=== PATIENT | male | born 1940 | race Caucasian/White ===

== ENCOUNTER 2016-09-20 02:00 | Inpatient (IN) | payer OTHER ==
[~2016-09-20] VITALS: Ht 175.3 cm; Wt 98.4 kg
[~2016-09-20 02:00] MED LIST: ASPI-621 PO; FOLI0.4T2 PO; GLIP10TA20 PO; HYDR25TA6 PO; HYDROCHLORTHIAZIDE PO; LEVO750T26 PO; LISI-167 PO; METF25CR PO; OMEG1CAP6 PO; PRAV20TA2 PO; VITA400C14 PO
[2016-09-20] MEDS ORDERED: NITROGLYCERIN OINT 2%, 1GM TP ONE ×2 (02:44→03:00)
[2016-09-20] MEDS ORDERED: ASPIRIN 81 MG TABLET CHEW ONE (02:45)
[2016-09-20 02:58] LABS: HEMOGLOBIN 16.5 g/dL (13.7-18.0)
[2016-09-20] MEDS ORDERED: ASPIRIN 81 MG TABLET CHEW PO ONE (03:00)
[2016-09-20] MEDS ORDERED: SODIUM CHLORIDE FLUSH 10ML SYR IVF ONE (03:00)
[2016-09-20] MEDS ORDERED: LORazepam 2 MG/ML, 1ML ONE (03:03)
[2016-09-20] MEDS: LORazepam 2 MG/ML, 1ML IVPush PRN ×4 (03:05→03:57)
[2016-09-20] MEDS ORDERED: NITROGLYCERIN/D5W PMX 250 ML ONE (03:06)
[2016-09-20 03:10] LABS: ASPARTATE AMINO TRANSFERASE 13 U/L (15-37); BLOOD UREA NITROGEN 17 mg/dL (7-18)
[2016-09-20] MEDS: NITROGLYCERIN/D5W PMX 250 ML IV SCH ×5 (03:14→04:11)
[2016-09-20 03:16] LABS: IS PT STATUS REG ER OR PRE ER? YES
[2016-09-20] MEDS ORDERED: FUROSEMIDE 40 MG/4 ML ONE (03:22)
[2016-09-20] MEDS ORDERED: FUROSEMIDE 40 MG/4 ML IV ONE (03:30)
[2016-09-20] MEDS ORDERED: METF10002 PO (04:20)
[2016-09-20] MEDS ORDERED: LISI-170 PO (04:20)
[2016-09-20] MEDS ORDERED: CARV12.52 PO (04:20)
[2016-09-20] MEDS ORDERED: PRAV40TA2 PO (04:20)
[2016-09-20] MEDS ORDERED: NITROGLYCERIN/D5W PMX 250 ML IV PRN (04:30)
[2016-09-20] MEDS ORDERED: OXYcodone IR 5MG TABLET PO PRN (04:30)
[2016-09-20] MEDS ORDERED: DOCUSATE 100 MG CAPSULE PO PRN (04:30)
[2016-09-20] MEDS ORDERED: MORPHINE SULFATE 4 MG/ML, 1ML IVPush PRN (04:30)
[2016-09-20] MEDS ORDERED: BISACODYL 10 MG SUPP PR PRN (04:30)
[2016-09-20] MEDS ORDERED: ACETAMINOPHEN 325 MG TABLET PO PRN (04:30)
[2016-09-20] MEDS ORDERED: ONDANSETRON 2MG/ML, 2ML IVP PRN (04:30)
[2016-09-20] MEDS ORDERED: POLYETHYLENE GLYCOL 17 GM PACKET PO PRN (04:30)
[2016-09-20] MEDS ORDERED: LORazepam 2 MG/ML, 1ML IVPush PRN (04:30)
[2016-09-20] MEDS ORDERED: ENOXAPARIN 40 MG/0.4 ML ONE (04:47)
[2016-09-20] MEDS: ENOXAPARIN 40 MG/0.4 ML SQ SCH (04:49)
[2016-09-20 05:21] LABS: ABG COLLECTION SITE RIGHT RADIAL; COLLATERAL CIRCULATION TESTING NORMAL
[2016-09-20] MEDS ORDERED: INSULIN REGULAR 100 UNITS/ML, 3ML VIAL SQ-INSULIN SCH (07:00)
[2016-09-20 08:00] VITALS: BP 112/79
[2016-09-20 08:45] LABS: IS PT STATUS REG ER OR PRE ER? NO
[2016-09-20] MEDS: FAMOTIDINE 20 MG/2 ML IV SCH ×2 (09:16→21:19)
[2016-09-20] MEDS: POTASSIUM CHLORIDE 20 MEQ TAB.ER.PRT PO SCH (09:16)
[2016-09-20] MEDS: FUROSEMIDE 40 MG/4 ML IV SCH ×2 (09:16→17:12)
[2016-09-20] MEDS: SODIUM CHLORIDE FLUSH 10ML SYR IVF SCH ×2 (09:16→21:20)
[2016-09-20] MEDS: CARVEDILOL 12.5 MG TABLET PO SCH ×2 (09:19→21:19)
[2016-09-20] MEDS: LISINOPRIL 20 MG TABLET PO SCH (09:19)
[2016-09-20 10:41] VITALS: BP 112/79
[2016-09-20 15:02] LABS: IS PT STATUS REG ER OR PRE ER? NO
[2016-09-20 20:00] VITALS: BP 135/75
[2016-09-20] MEDS: PRAVASTATIN 40 MG TABLET PO SCH (21:19)
[2016-09-21 04:12] VITALS: BP 112/66
[2016-09-21] MEDS: ENOXAPARIN 40 MG/0.4 ML SQ SCH (04:18)
[2016-09-21 04:37] LABS: HEMOGLOBIN 16.3 g/dL (13.7-18.0)
[2016-09-21 04:42] LABS: BLOOD UREA NITROGEN 21 mg/dL (7-18)
[2016-09-21 08:41] VITALS: BP 151/76
[2016-09-21] MEDS: LISINOPRIL 20 MG TABLET PO SCH (09:39)
[2016-09-21] MEDS: FAMOTIDINE 20 MG/2 ML IV SCH (09:39)
[2016-09-21] MEDS: CARVEDILOL 12.5 MG TABLET PO SCH ×2 (09:39→20:31)
[2016-09-21] MEDS: POTASSIUM CHLORIDE 20 MEQ TAB.ER.PRT PO SCH (09:39)
[2016-09-21] MEDS: FUROSEMIDE 40 MG/4 ML IV SCH ×2 (09:40→18:13)
[2016-09-21] MEDS: SODIUM CHLORIDE FLUSH 10ML SYR IVF SCH ×2 (09:40→20:46)
[2016-09-21 15:38] VITALS: BP 104/73
[2016-09-21 18:33] VITALS: BP 129/78
[2016-09-21] MEDS: PRAVASTATIN 40 MG TABLET PO SCH (20:31)
[2016-09-21] MEDS: FAMOTIDINE 20 MG TABLET PO SCH (20:31)
[2016-09-22 01:58] VITALS: BP 104/70
[2016-09-22 06:32] VITALS: BP 112/75
[2016-09-22] MEDS: FUROSEMIDE 40 MG/4 ML IV SCH ×2 (07:30→15:31)
[2016-09-22] MEDS: ENOXAPARIN 40 MG/0.4 ML SQ SCH (07:40)
[2016-09-22 08:02] LABS: BLOOD UREA NITROGEN 24 mg/dL (7-18)
[2016-09-22] MEDS: POTASSIUM CHLORIDE 20 MEQ TAB.ER.PRT PO SCH (08:17)
[2016-09-22] MEDS: LISINOPRIL 20 MG TABLET PO SCH (08:17)
[2016-09-22] MEDS: CARVEDILOL 12.5 MG TABLET PO SCH ×2 (08:17→21:36)
[2016-09-22] MEDS: FAMOTIDINE 20 MG TABLET PO SCH ×2 (08:17→21:36)
[2016-09-22] MEDS: SODIUM CHLORIDE FLUSH 10ML SYR IVF SCH ×4 (08:17→21:36)
[2016-09-22] MEDS: MUPIROCIN OINT 2%, 22GM TP SCH ×2 (08:18→21:36)
[2016-09-22] MEDS ORDERED: INSULIN ASPART 100 UNITS/ML, PEN SQ-INSULIN SCH (08:30)
[2016-09-22] MEDS ORDERED: CHLORHEXIDINE MOUTHWASH 15 ML UDC MM PRN (08:30)
[2016-09-22 08:43] LABS: HEMOGLOBIN 16.5 g/dL (13.7-18.0)
[2016-09-22 08:53] LABS: ASPARTATE AMINO TRANSFERASE 11 U/L (15-37); BLOOD UREA NITROGEN 23 mg/dL (7-18)
[2016-09-22 13:26] VITALS: BP 121/81
[2016-09-22 20:00] VITALS: BP 110/72
[2016-09-22] MEDS: PRAVASTATIN 40 MG TABLET PO SCH (21:36)
[2016-09-23 04:00] VITALS: BP_SYST 106; BP_SYST 108; BP_DIAS 70; BP_DIAS 75
[2016-09-23 06:07] LABS: BLOOD UREA NITROGEN 28 mg/dL (7-18)
[2016-09-23 07:15] VITALS: BP 107/73
[2016-09-23 07:17] VITALS: BP 113/72
[2016-09-23] MEDS: FUROSEMIDE 40 MG/4 ML IV SCH (07:30)
[2016-09-23] MEDS ORDERED: EPINEPHRINE 2 MG in SODIUM CHLORIDE 0.9% 248 ML IV SCH (07:30)
[2016-09-23] MEDS ORDERED: DEXMEDETOMIDINE 200 MCG in SODIUM CHLORIDE 0.9% 48 ML IV SCH (07:30)
[2016-09-23] MEDS ORDERED: PHENYLEPHRINE 10 MG in SODIUM CHLORIDE 0.9% 249 ML IV PRN ×2 (07:30→15:40)
[2016-09-23] MEDS ORDERED: CEFUROXIME 1.5 GM in SODIUM CHLORIDE 0.9% 50 ML IVPB PRN ×2 (07:30→12:30)
[2016-09-23] MEDS ORDERED: MANNITOL PMX 20% 500 ML IVPB PRN (07:30)
[2016-09-23] MEDS ORDERED: REGULAR INSULIN 62.5 UNITS in SODIUM CHLORIDE 0.9% 249.375 ML IV PRN ×2 (07:30→15:40)
[2016-09-23] MEDS ORDERED: POTASSIUM CHLORIDE 80 MEQ, SODIUM BICARBONATE 8.4% 10 MEQ, MAGNESIUM SULFATE 0.5 GM, LI... IV PRN (07:30)
[2016-09-23] MEDS ORDERED: VANCOMYCIN 1,350 MG in SODIUM CHLORIDE 0.9% 250 ML IVPB PRN ×2 (07:30→12:30)
[2016-09-23] MEDS: ENOXAPARIN 40 MG/0.4 ML SQ SCH (08:00)
[2016-09-23] MEDS: POTASSIUM CHLORIDE 20 MEQ TAB.ER.PRT PO SCH (08:00)
[2016-09-23] MEDS: FAMOTIDINE 20 MG TABLET PO SCH (09:00)
[2016-09-23] MEDS: CARVEDILOL 12.5 MG TABLET PO SCH (09:00)
[2016-09-23] MEDS: LISINOPRIL 20 MG TABLET PO SCH (09:00)
[2016-09-23] MEDS: MUPIROCIN OINT 2%, 22GM TP SCH (09:25)
[2016-09-23] MEDS: SODIUM CHLORIDE FLUSH 10ML SYR IVF SCH ×3 (09:30→21:30)
[2016-09-23] MEDS ORDERED: ALBUMIN HUMAN 5% 500 ML IV ONE (10:30)
[2016-09-23] MEDS ORDERED: PROPOFOL 10 MG/ML, 20ML ONE (11:14)
[2016-09-23] MEDS ORDERED: EPINEPHRINE 1 MG/ML, 1ML ONE (11:14)
[2016-09-23] MEDS ORDERED: MILRINONE 1 MG/ML, 20ML ONE (11:14)
[2016-09-23] MEDS ORDERED: ROCURONIUM 10 MG/ML ONE (11:14)
[2016-09-23] MEDS ORDERED: FENTANYL PF 1000 MCG/20ML ONE (11:18)
[2016-09-23] MEDS ORDERED: MIDAZOLAM 10MG/2 ML ONE (11:18)
[2016-09-23] MEDS ORDERED: DOBUTAMINE 250 MG in SODIUM CHLORIDE 0.9% 230 ML IV PRN (15:40)
[2016-09-23] MEDS ORDERED: DEXMEDETOMIDINE 200 MCG in SODIUM CHLORIDE 0.9% 48 ML IV PRN (15:40)
[2016-09-23] MEDS ORDERED: SODIUM CHLORIDE 0.9% 1,000 ML IV PRN (15:40)
[2016-09-23] MEDS ORDERED: NITROGLYCERIN/D5W PMX 250 ML IV PRN (15:40)
[2016-09-23] MEDS ORDERED: CLEVIDIPINE 50 ML IV PRN (15:40)
[2016-09-23] MEDS ORDERED: DEXTROSE 50%, 50ML SYRINGE IVPush PRN (16:00)
[2016-09-23] MEDS ORDERED: ACETAMINOPHEN 325 MG TABLET PO PRN (16:00)
[2016-09-23] MEDS ORDERED: DEXTROSE 4 GM TAB.CHEW PO PRN (16:00)
[2016-09-23] MEDS ORDERED: ACETAMINOPHEN 650 MG SUPP PR PRN (16:00)
[2016-09-23] MEDS ORDERED: ONDANSETRON 2MG/ML, 2ML IVPush PRN (16:00)
[2016-09-23] MEDS ORDERED: EPINEPHRINE 2 MG in SODIUM CHLORIDE 0.9% 248 ML IV PRN (16:00)
[2016-09-23] MEDS ORDERED: GLUCAGON 1 MG IM PRN (16:00)
[2016-09-23] MEDS ORDERED: BISACODYL 10 MG SUPP PR PRN (16:00)
[2016-09-23] MEDS ORDERED: MEPERIDINE/PF 25MG/0.5ML IVPush PRN (16:00)
[2016-09-23] MEDS: KSCALE TO 4.5 IV SCH ×2 (16:00→22:56)
[2016-09-23] MEDS ORDERED: SODIUM BICARB 8.4%, 50ML SYRINGE IV PRN (16:00)
[2016-09-23] MEDS ORDERED: MIDAZOLAM 1 MG/ML, 5ML IVPush PRN (16:00)
[2016-09-23] MEDS ORDERED: CALCIUM CHLORIDE 13.6 MEQ in SODIUM CHLORIDE 0.9% 100 ML IV ONE (16:00)
[2016-09-23] MEDS ORDERED: PROCHLORPERAZINE 5 MG/ML, 2ML IVPush PRN (16:00)
[2016-09-23] MEDS ORDERED: AMINOCAPROIC ACID 250 MG/ML, 20ML ONE (16:10)
[2016-09-23] MEDS ORDERED: LIDOCAINE 2% 100MG/5ML SYRINGE ONE (16:10)
[2016-09-23] MEDS ORDERED: PROTAMINE SULFATE 10 MG/ML, 25ML ONE (16:10)
[2016-09-23] MEDS ORDERED: CALCIUM CHLORIDE 10%, 10ML SYR ONE (16:10)
[2016-09-23] MEDS ORDERED: ALBUMIN HUMAN 25% 50 ML ONE (16:10)
[2016-09-23] MEDS ORDERED: HEPARIN 1,000 UNITS/ML, 30ML ONE (16:10)
[2016-09-23] MEDS ORDERED: methylPREDNISolone SOD SUCC 125 MG/2 ML ONE (16:11)
[2016-09-23] MEDS ORDERED: MILRINONE 1 MG/ML, 10ML IV ONE (16:11)
[2016-09-23 16:13] LABS: ABG COLLECTION SITE ARTERIAL LINE
[2016-09-23] MEDS ORDERED: AMIODARONE 50 MG/ML, 3ML ONE (16:14)
[2016-09-23 16:16] LABS: HEMOGLOBIN 13.7 g/dL (13.7-18.0)
[2016-09-23] MEDS: MAGNESIUM SULFATE 1 GM in SODIUM CHLORIDE 0.9% 50 ML IVPB SCH (17:28)
[2016-09-23 18:26] LABS: ABG COLLECTION SITE ARTERIAL LINE
[2016-09-23] MEDS: morphine SULFATE 10 MG/ML, 1ML IVPush PRN ×4 (19:27→23:49)
[2016-09-23] MEDS: LACTATED RINGERS 500 ML IV PRN ×2 (19:50→20:52)
[2016-09-23] MEDS: DOCUSATE 100 MG CAPSULE PO SCH (21:00)
[2016-09-23] MEDS: PRAVASTATIN 40 MG TABLET PO SCH (21:00)
[2016-09-23 21:27] LABS: ABG COLLECTION SITE NOT DOCUMENTED
[2016-09-23] MEDS: OXYcodone IR 5MG TABLET PO PRN (22:43)
[2016-09-23] MEDS: MUPIROCIN OINT 2%, 22GM NAS SCH (22:43)
[2016-09-23] MEDS: CEFUROXIME 1.5 GM in SODIUM CHLORIDE 0.9% 50 ML IVPB SCH (22:48)
[2016-09-23 22:51] LABS: HEMOGLOBIN 11.4 g/dL (13.7-18.0)
[2016-09-23] MEDS: INSULIN ASPART 100 UNITS/ML, PEN SQ-INSULIN PRN (23:31)
[2016-09-23] MEDS: VANCOMYCIN 1,400 MG in SODIUM CHLORIDE 0.9% 250 ML IVPB SCH (23:49)
[2016-09-24] MEDS: INSULIN ASPART 100 UNITS/ML, PEN SQ-INSULIN PRN ×4 (00:33→04:41)
[2016-09-24] MEDS: HYDROcodone/APAP 10/325 MG TABLET PO PRN ×5 (01:28→21:15)
[2016-09-24] MEDS ORDERED: ALBUTEROL SULFATE 2.5 MG/3 ML NPPB PRN (03:30)
[2016-09-24 03:44] LABS: ABG COLLECTION SITE NOT DOCUMENTED
[2016-09-24 03:56] LABS: BLOOD UREA NITROGEN 23 mg/dL (7-18)
[2016-09-24] MEDS: KSCALE TO 4.5 IV SCH (04:00)
[2016-09-24 04:14] LABS: HEMOGLOBIN 11.3 g/dL (13.7-18.0)
[2016-09-24] MEDS: OXYcodone IR 5MG TABLET PO PRN ×2 (04:39→14:00)
[2016-09-24] MEDS: PANTOPRAZOLE 40 MG IV IVPush SCH (08:10)
[2016-09-24] MEDS: SODIUM CHLORIDE FLUSH 10ML SYR IVF SCH ×3 (08:11→21:15)
[2016-09-24] MEDS: DOCUSATE 100 MG CAPSULE PO SCH ×2 (08:12→21:15)
[2016-09-24] MEDS: MUPIROCIN OINT 2%, 22GM NAS SCH ×2 (08:12→21:15)
[2016-09-24] MEDS: ASPIRIN 81 MG TABLET EC PO SCH (08:12)
[2016-09-24] MEDS: INSULIN ASPART 100 UNITS/ML, PEN SQ-INSULIN SCH ×4 (08:12→21:22)
[2016-09-24] MEDS: CEFUROXIME 1.5 GM in SODIUM CHLORIDE 0.9% 50 ML IVPB SCH (11:09)
[2016-09-24 11:41] LABS: HEMOGLOBIN 10.1 g/dL (13.7-18.0)
[2016-09-24] MEDS: VANCOMYCIN 1,400 MG in SODIUM CHLORIDE 0.9% 250 ML IVPB SCH (11:55)
[2016-09-24 14:33] VITALS: BP 96/68
[2016-09-24] MEDS: MAGNESIUM SULFATE 1 GM in SODIUM CHLORIDE 0.9% 50 ML IVPB SCH (17:04)
[2016-09-24] MEDS: CHLORHEXIDINE MOUTHWASH 15 ML UDC MM SCH (17:04)
[2016-09-24] MEDS ORDERED: WARFARIN 5 MG TABLET PO-COUM SCH (18:00)
[2016-09-24 19:00] VITALS: BP 106/65
[2016-09-24] MEDS: PRAVASTATIN 40 MG TABLET PO SCH (21:15)
[2016-09-25] MEDS: OXYcodone IR 5MG TABLET PO PRN ×3 (01:28→22:02)
[2016-09-25 04:22] VITALS: BP 130/70
[2016-09-25] MEDS: CHLORHEXIDINE MOUTHWASH 15 ML UDC MM SCH ×2 (05:18→22:02)
[2016-09-25 05:43] LABS: BLOOD UREA NITROGEN 17 mg/dL (7-18)
[2016-09-25 05:54] LABS: HEMOGLOBIN 10.2 g/dL (13.7-18.0)
[2016-09-25 06:34] VITALS: BP 118/58
[2016-09-25] MEDS: PANTOPRAZOLE 40 MG IV IVPush SCH (08:13)
[2016-09-25] MEDS: INSULIN ASPART 100 UNITS/ML, PEN SQ-INSULIN SCH ×4 (08:13→22:09)
[2016-09-25] MEDS: SODIUM CHLORIDE FLUSH 10ML SYR IVF SCH ×4 (08:14→22:01)
[2016-09-25] MEDS: DOCUSATE 100 MG CAPSULE PO SCH ×2 (08:14→22:02)
[2016-09-25] MEDS: MUPIROCIN OINT 2%, 22GM NAS SCH ×2 (08:14→22:02)
[2016-09-25] MEDS: ASPIRIN 81 MG TABLET EC PO SCH (08:14)
[2016-09-25] MEDS: POTASSIUM CHLORIDE 20 MEQ TAB.ER.PRT PO SCH (08:25)
[2016-09-25] MEDS: FUROSEMIDE 40 MG/4 ML IV SCH (08:25)
[2016-09-25] MEDS: HYDROcodone/APAP 10/325 MG TABLET PO PRN ×2 (08:25→15:12)
[2016-09-25] MEDS ORDERED: FILTER 0.22 MICRON IV SCH (10:00)
[2016-09-25] MEDS ORDERED: AMIODARONE 150 MG in DEXTROSE 5% 100 ML IV ONE (10:00)
[2016-09-25] MEDS: AMIODARONE 900 MG in DEXTROSE 5% 482 ML IV PRN (10:53)
[2016-09-25 13:47] VITALS: BP 79/48
[2016-09-25 13:59] VITALS: BP 89/53
[2016-09-25] MEDS: MAGNESIUM SULFATE 1 GM in SODIUM CHLORIDE 0.9% 50 ML IVPB SCH (16:28)
[2016-09-25] MEDS ORDERED: WARFARIN 5 MG TABLET PO-COUM SCH (18:00)
[2016-09-25 19:31] VITALS: BP 116/76
[2016-09-25] MEDS: PRAVASTATIN 40 MG TABLET PO SCH (22:02)
[2016-09-26] MEDS: HYDROcodone/APAP 10/325 MG TABLET PO PRN ×3 (01:54→13:17)
[2016-09-26 02:06] VITALS: BP 115/63
[2016-09-26 04:57] LABS: HEMOGLOBIN 9.8 g/dL (13.7-18.0)
[2016-09-26 05:04] LABS: BLOOD UREA NITROGEN 18 mg/dL (7-18)
[2016-09-26] MEDS: FILTER 0.22 MICRON IV SCH ×2 (05:32→13:57)
[2016-09-26] MEDS: AMIODARONE 900 MG in DEXTROSE 5% 482 ML IV PRN (05:32)
[2016-09-26 07:35] VITALS: BP 108/71
[2016-09-26] MEDS: CHLORHEXIDINE MOUTHWASH 15 ML UDC MM SCH (08:49)
[2016-09-26] MEDS: INSULIN ASPART 100 UNITS/ML, PEN SQ-INSULIN SCH ×4 (08:49→21:56)
[2016-09-26] MEDS: PANTOPRAZOLE 40 MG IV IVPush SCH (08:50)
[2016-09-26] MEDS: FUROSEMIDE 40 MG/4 ML IV SCH (08:50)
[2016-09-26] MEDS: MUPIROCIN OINT 2%, 22GM NAS SCH ×2 (08:50→21:50)
[2016-09-26] MEDS: POTASSIUM CHLORIDE 20 MEQ TAB.ER.PRT PO SCH (08:50)
[2016-09-26] MEDS: ASPIRIN 81 MG TABLET EC PO SCH (08:50)
[2016-09-26] MEDS: DOCUSATE 100 MG CAPSULE PO SCH ×2 (08:50→21:49)
[2016-09-26] MEDS: OXYcodone IR 5MG TABLET PO PRN ×2 (08:50→21:49)
[2016-09-26] MEDS: SODIUM CHLORIDE FLUSH 10ML SYR IVF SCH ×4 (08:50→21:50)
[2016-09-26] MEDS: AMIODARONE 200 MG TABLET PO SCH ×2 (10:36→21:50)
[2016-09-26 13:07] VITALS: BP 95/58
[2016-09-26 13:18] VITALS: BP 98/61
[2016-09-26] MEDS ORDERED: AMIODARONE 900 MG in DEXTROSE 5% 482 ML IV PRN (14:00)
[2016-09-26] MEDS ORDERED: AMIODARONE 150 MG in DEXTROSE 5% 100 ML IV ONE (14:00)
[2016-09-26] MEDS ORDERED: WARFARIN 5 MG TABLET PO-COUM ONE (18:00)
[2016-09-26 19:19] VITALS: BP 102/71
[2016-09-26] MEDS: PRAVASTATIN 40 MG TABLET PO SCH (21:49)
[2016-09-27 01:39] VITALS: BP 107/69
[2016-09-27 05:08] LABS: HEMOGLOBIN 10.4 g/dL (13.7-18.0)
[2016-09-27 05:25] LABS: BLOOD UREA NITROGEN 20 mg/dL (7-18)
[2016-09-27] MEDS: HYDROcodone/APAP 10/325 MG TABLET PO PRN ×3 (05:27→15:34)
[2016-09-27 06:55] VITALS: BP 100/62
[2016-09-27] MEDS: FUROSEMIDE 40 MG/4 ML IV SCH (08:26)
[2016-09-27] MEDS: SODIUM CHLORIDE FLUSH 10ML SYR IVF SCH ×4 (08:26→21:39)
[2016-09-27] MEDS: PANTOPRAZOLE 40 MG IV IVPush SCH (08:26)
[2016-09-27] MEDS: INSULIN ASPART 100 UNITS/ML, PEN SQ-INSULIN SCH ×4 (08:26→21:37)
[2016-09-27] MEDS: MUPIROCIN OINT 2%, 22GM NAS SCH ×2 (08:26→21:30)
[2016-09-27] MEDS: POTASSIUM CHLORIDE 20 MEQ TAB.ER.PRT PO SCH (08:27)
[2016-09-27] MEDS: ASPIRIN 81 MG TABLET EC PO SCH (08:27)
[2016-09-27] MEDS: DOCUSATE 100 MG CAPSULE PO SCH ×2 (08:27→21:29)
[2016-09-27] MEDS: AMIODARONE 200 MG TABLET PO SCH ×2 (08:27→21:30)
[2016-09-27] MEDS: MAGNESIUM HYDROXIDE 8%, 30ML UDC PO PRN (08:28)
[2016-09-27 11:22] VITALS: BP 100/59
[2016-09-27] MEDS: GLIPizide ER 5 MG TABLET PO SCH (11:23)
[2016-09-27 14:17] VITALS: BP 112/69
[2016-09-27] MEDS ORDERED: WARFARIN 2.5 MG TABLET PO-COUM ONE (18:00)
[2016-09-27 19:46] VITALS: BP 112/76
[2016-09-27] MEDS: PRAVASTATIN 40 MG TABLET PO SCH (21:29)
[2016-09-27] MEDS: OXYcodone IR 5MG TABLET PO PRN (21:30)
[2016-09-28] VITALS (8 sets, daily range): BP systolic 90–133; BP diastolic 49–82
[2016-09-28] MEDS: HYDROcodone/APAP 10/325 MG TABLET PO PRN ×3 (04:00→20:28)
[2016-09-28 06:53] LABS: BLOOD UREA NITROGEN 18 mg/dL (7-18)
[2016-09-28] MEDS: INSULIN ASPART 100 UNITS/ML, PEN SQ-INSULIN SCH ×4 (07:43→20:35)
[2016-09-28] MEDS: BISACODYL 5 MG EC TABLET PO PRN (07:59)
[2016-09-28] MEDS: ASPIRIN 81 MG TABLET EC PO SCH (08:00)
[2016-09-28] MEDS ORDERED: DIGOXIN 0.25 MG/ML, 2ML IVPush ONE ×2 (08:00→18:00)
[2016-09-28] MEDS: POTASSIUM CHLORIDE 20 MEQ TAB.ER.PRT PO SCH (08:00)
[2016-09-28] MEDS: GLIPizide ER 5 MG TABLET PO SCH (08:00)
[2016-09-28] MEDS: AMIODARONE 200 MG TABLET PO SCH ×2 (08:00→20:28)
[2016-09-28] MEDS: FUROSEMIDE 40 MG/4 ML IV SCH (08:00)
[2016-09-28] MEDS: DOCUSATE 100 MG CAPSULE PO SCH ×2 (08:00→20:29)
[2016-09-28] MEDS ORDERED: HOLD COUMADIN MC PRN (08:00)
[2016-09-28] MEDS: PANTOPROZOLE 40MG TABLET PO SCH (08:00)
[2016-09-28] MEDS ORDERED: METOPROLOL TARTRATE 25 MG TABLET PO SCH (08:00)
[2016-09-28] MEDS: MUPIROCIN OINT 2%, 22GM NAS SCH (08:01)
[2016-09-28] MEDS: SODIUM CHLORIDE FLUSH 10ML SYR IVF SCH ×4 (08:01→20:29)
[2016-09-28] MEDS: METOPROLOL TARTRATE 25 MG TABLET PO SCH (17:50)
[2016-09-28] MEDS: PRAVASTATIN 40 MG TABLET PO SCH (20:28)
[2016-09-29 02:00] VITALS: BP 110/63
[2016-09-29] MEDS: HYDROcodone/APAP 10/325 MG TABLET PO PRN (04:44)
[2016-09-29] MEDS: METOPROLOL TARTRATE 25 MG TABLET PO SCH (05:59)
[2016-09-29 06:56] LABS: BLOOD UREA NITROGEN 16 mg/dL (7-18)
[2016-09-29] MEDS: INSULIN ASPART 100 UNITS/ML, PEN SQ-INSULIN SCH ×2 (07:00→11:00)
[2016-09-29 07:11] VITALS: BP 110/68
[2016-09-29] MEDS ORDERED: WARF2TAB7 PO (07:54)
[2016-09-29] MEDS ORDERED: FURO40TA6 PO (07:54)
[2016-09-29] MEDS ORDERED: DOCU-30 PO (07:54)
[2016-09-29] MEDS ORDERED: POTA20TA14 PO (07:54)
[2016-09-29] MEDS ORDERED: ASPI-621 PO (07:54)
[2016-09-29] MEDS ORDERED: POTASSIUM CHLORIDE 20 MEQ TAB.ER.PRT PO ONE (08:00)
[2016-09-29] MEDS ORDERED: METO25TA35 PO (08:01)
[2016-09-29] MEDS ORDERED: DIGO125T PO (08:02)
[2016-09-29] MEDS ORDERED: GLIPizide ER 5 MG TABLET PO SCH (08:07)
[2016-09-29] MEDS: ASPIRIN 81 MG TABLET EC PO SCH (08:26)
[2016-09-29] MEDS: AMIODARONE 200 MG TABLET PO SCH (08:27)
[2016-09-29] MEDS: POTASSIUM CHLORIDE 20 MEQ TAB.ER.PRT PO SCH (08:27)
[2016-09-29] MEDS: DOCUSATE 100 MG CAPSULE PO SCH (08:27)
[2016-09-29] MEDS: PANTOPROZOLE 40MG TABLET PO SCH (08:27)
[2016-09-29] MEDS: FUROSEMIDE 40 MG/4 ML IV SCH (08:28)
[2016-09-29] MEDS: OXYcodone IR 5MG TABLET PO PRN (08:28)
[2016-09-29] MEDS: BISACODYL 5 MG EC TABLET PO PRN (08:28)
[2016-09-29] MEDS: SODIUM CHLORIDE FLUSH 10ML SYR IVF SCH ×2 (08:31)
[2016-09-29] MEDS: MAGNESIUM HYDROXIDE 8%, 30ML UDC PO PRN (10:00)
[2016-09-29] MEDS ORDERED: HYDR-3307 PO (14:32)
[2016-09-29] MEDS ORDERED: AMIO400T4 PO (14:35)
[2016-09-29] MEDS ORDERED: WARFARIN 2.5 MG TABLET PO-COUM ONE (18:00)
== END 2016-09-29 15:07 | disposition home health service (06) | DRG 219 ==
LOC: ED 02:52 → SUATTDRO 04:23 → EDIP 04:28 → CCU 06:15 → ICU 11:26 → 5SO 09-21 17:23 → CCU 09-23 11:12 → CSU 09-23 13:14 → 5SO 09-24 14:31 → DCLOUNGE 09-29 14:24
PROC: 5A09357 Assistance with Respiratory Ventilation, Less than 24 Consecutive Hours, Continuous Positive Airway Pressure (ICD-10-PCS; 2016-09-20)
PROC: 02RF0JZ Replacement of Aortic Valve with Synthetic Substitute, Open Approach (ICD-10-PCS; 2016-09-23)
PROC: 02UG0JZ Supplement Mitral Valve with Synthetic Substitute, Open Approach (ICD-10-PCS; 2016-09-23)
PROC: 5A1221Z Performance of Cardiac Output, Continuous (ICD-10-PCS; 2016-09-23)
PROC: 30233L1 Transfusion of Nonautologous Fresh Plasma into Peripheral Vein, Percutaneous Approach (ICD-10-PCS; 2016-09-23)
PROC: 6A550Z3 Pheresis of Plasma, Single (ICD-10-PCS; 2016-09-23)
PROC: 30233M1 Transfusion of Nonautologous Plasma Cryoprecipitate into Peripheral Vein, Percutaneous Approach (ICD-10-PCS; 2016-09-23)
PROC: 30233K1 Transfusion of Nonautologous Frozen Plasma into Peripheral Vein, Percutaneous Approach (ICD-10-PCS; 2016-09-23)
PROC: 0T9B70Z Drainage of Bladder with Drainage Device, Via Natural or Artificial Opening (ICD-10-PCS; 2016-09-23)
PROC: 6A550Z2 Pheresis of Platelets, Single (ICD-10-PCS; 2016-09-23)
PROC: B246ZZ4 Ultrasonography of Right and Left Heart, Transesophageal (ICD-10-PCS; principal; 2016-09-23 12:30)
DX: I08.0 Rheumatic disorders of both mitral and aortic valves (principal); J96.01 Acute respiratory failure with hypoxia; I50.41 Acute combined systolic (congestive) and diastolic (congestive) heart failure; Z99.11 Dependence on respirator [ventilator] status; I11.0 Hypertensive heart disease with heart failure; E11.9 Type 2 diabetes mellitus without complications; E78.5 Hyperlipidemia, unspecified; R31.9 Hematuria, unspecified; I48.0 Paroxysmal atrial fibrillation; D64.9 Anemia, unspecified; E87.70 Fluid overload, unspecified; I70.0 Atherosclerosis of aorta; Z79.01 Long term (current) use of anticoagulants; Z90.89 Acquired absence of other organs; Z87.891 Personal history of nicotine dependence; Z82.3 Family history of stroke; Z87.440 Personal history of urinary (tract) infections; Z83.3 Family history of diabetes mellitus; Z82.49 Family history of ischemic heart disease and other diseases of the circulatory system; Z88.5 Allergy status to narcotic agent
CPT/HCPCS: 36415; 36600; 71010; 80048; 80053; 81001; 82040; 82330; 82800; 82803; 82810; 82947; 82962; 83036; 83735; 83880; 84132; 84295; 84484; 85014; 85018; 85025; 85049; 85347; 85610; 85730; 86850; 86900; 86923; 87081; 87086; 88305; 88311; 93005; 93306; 93312; 93321; 93325; 93880; 94002; 94003; 94150; 96374; 96375; C1768; J0171; J0697; J1644; J1650; J1815; J1940; J2250; J2260; J2405; J2704; J2720; J3010; J3370; J3475; J3480; J3490; J7120; P9045; P9047; C1760; C9113; J0282; J0780; J1160; J2060; J2270; J2370; J2930; J7050; J7060; P9012; P9017; P9035; S0028

== ENCOUNTER → 2017-03-30 | Outpatient (CLI) | payer OTHER ==
[~2017-03-30] MED LIST changes: +AMIO400T4 PO; +CARV12.52 PO; +DIGO125T PO; +DOCU-131 PO; +FURO40TA6 PO; +GLIP-164 PO; -GLIP10TA20 PO; +HYDR-3307 PO; +LISI-170 PO; +METF10002 PO; +METO25TA35 PO; +POTA20TA14 PO; +PRAV40TA2 PO; +WARF2TAB7 PO
== END | disposition home or self-care (01) ==
LOC: RAD 09:35
PROVIDERS: ATTEND Urology
DX: N20.1 Calculus of ureter (principal)
CPT/HCPCS: 74000

== ENCOUNTER 2018-02-18 04:16 | Inpatient (IN) | payer OTHER ==
[~2018-02-18] VITALS: Ht 175.3 cm; Wt 101.2 kg
[~2018-02-18 04:16] MED LIST changes: -AMIO400T4 PO; +AMIO400T5 PO; -WARF2TAB7 PO; +WARF2TAB99 PO
[2018-02-18] MEDS ORDERED: ONDANSETRON 2MG/ML, 2ML ONE (04:48)
[2018-02-18] MEDS ORDERED: SODIUM CHLORIDE 0.9% 1,000ML IVBOLUS ONE (05:00)
[2018-02-18] MEDS ORDERED: ONDANSETRON 2MG/ML, 2ML IVPush ONE (05:00)
[2018-02-18] MEDS ORDERED: SODIUM CHLORIDE FLUSH 10ML SYR IVF ONE (05:00)
[2018-02-18 05:41] LABS: BASOPHILS # (AUTO) 0.01 x10^3/uL (0-0.1); BASOPHILS % (AUTO) 0 % (0-1); EOSINOPHILS # (AUTO) 0.02 x10^3/uL (0-0.4); EOSINOPHILS % (AUTO) 0 % (1-7); LYMPHOCYTES # (AUTO) 0.28 x10^3/uL (1-3.4); LYMPHOCYTES % (AUTO) 4 % (22-44); MD NO; MEAN CORPUSCULAR HGB CONC 33.6 g/dL (33.2-36.2); MEAN CORPUSCULAR VOLUME 95.3 fL (81-97); MEAN PLATELET VOLUME 9.1 fL (7.4-10.4); MONOCYTES # (AUTO) 0.55 x10^3/uL (0.2-0.8); MONOCYTES % (AUTO) 7 % (2-9); NEUTROPHILS # (AUTO) 6.92 x10^3/uL (1.8-6.8); NEUTROPHILS % (AUTO) 89 % (42-75); PLATELET COUNT 143 x10^3/uL (130-400); RED BLOOD COUNT 4.04 x10^6/uL (4.38-5.82); RED CELL DISTRIBUTION WIDTH 13.5 % (9.4-14.8)
[2018-02-18 05:51] LABS: CHLORIDE 108 mmol/L (98-107)
[2018-02-18 06:02] LABS: ALANINE AMINOTRANSFERASE 14 U/L (12-78); ALBUMIN 2.8 g/dL (3.4-5.0); ALKALINE PHOSPHATASE 49 U/L (45-117); ANION GAP 10 mmol/L (5-15); BILIRUBIN,TOTAL 2.3 mg/dL (0.2-1.0); CALCIUM 7.7 mg/dL (8.5-10.1); CREATININE 1.67 mg/dL (0.7-1.3); T4 (THYROXINE) 6.2 mcg/dL (4.5-12.1); TOTAL PROTEIN 6.3 g/dL (6.4-8.2); TROPONIN I 0.019 ng/mL (0.000-0.045)
[2018-02-18 06:06] LABS: THYROID STIMULATING HORMONE 0.837 mIU/L (0.358-3.740)
[2018-02-18] MEDS ORDERED: OMNIPAQUE 350 MG/ML, 100ML BOTTLE ONE (06:32)
[2018-02-18 06:56] LABS: CULTURE INDICATED? YES; MICROSCOPIC INDICATED
[2018-02-18] MEDS ORDERED: AMPICILLIN/SULBACTAM 3 GM in SODIUM CHLORIDE 0.9% 100 ML IV ONE (08:00)
[2018-02-18] MEDS ORDERED: VANCOMYCIN 1,600 MG in SODIUM CHLORIDE 0.9% 250 ML IV ONE (08:00)
[2018-02-18] MEDS ORDERED: AMPICILLIN/SULBACTAM 3 GM IVPB ONE (08:00)
[2018-02-18] MEDS ORDERED: VANCOMYCIN PER PHARMACY MC ONE (08:00)
[2018-02-18 09:08] VITALS: BP 105/67
[2018-02-18] MEDS ORDERED: MIDAZOLAM 1 MG/ML, 2ML ONE (09:48)
[2018-02-18] MEDS ORDERED: FENTANYL PF 250 MCG/5ML ONE (09:49)
[2018-02-18] MEDS ORDERED: PROPOFOL 10 MG/ML, 20ML ONE (10:39)
[2018-02-18] MEDS ORDERED: SUCCINYLCHOLINE 20 MG/ML, 10ML ONE (10:39)
[2018-02-18] MEDS ORDERED: OXYcodone 5 MG/5 ML ORAL.SOL UDC ONE (11:17)
[2018-02-18] MEDS ORDERED: FENTANYL PF 100 MCG/2ML ONE (11:18)
[2018-02-18 12:30] VITALS: BP 101/65
[2018-02-18 13:14] LABS: INTERNATIONAL NORMALIZED RATIO 1.18 (0.93-1.1); PROTHROMBIN TIME 12.1 Seconds (9.6-11.5)
[2018-02-18] MEDS ORDERED: LISI-170 PO (15:42)
[2018-02-18] MEDS ORDERED: TAMS-11 PO (15:42)
[2018-02-18] MEDS ORDERED: CARV25TA12 PO (15:42)
[2018-02-18] MEDS ORDERED: AMLO-302 PO (15:42)
[2018-02-18] MEDS ORDERED: ATOR20TA9 PO (15:42)
[2018-02-18] MEDS ORDERED: VANCOMYCIN PER PHARMACY MC PRN (16:00)
[2018-02-18] MEDS ORDERED: ACETAMINOPHEN 325 MG TABLET PO PRN (16:00)
[2018-02-18] MEDS ORDERED: PHARMACOKINETIC MONITORING MC PRN (16:00)
[2018-02-18] MEDS ORDERED: PHARMACY MAY ADJ FOR RENAL FX MC PRN (16:00)
[2018-02-18 16:14] LABS: HEMOGLOBIN A1C 6.5 % (4.2-6.3)
[2018-02-18] MEDS: AMPICILLIN/SULBACTAM 3 GM in SODIUM CHLORIDE 0.9% 100 ML IV SCH ×2 (17:09→22:18)
[2018-02-18] MEDS: SODIUM CHLORIDE 0.9% 1,000 ML IV SCH (17:09)
[2018-02-18] MEDS: HEPARIN 5,000 UNITS/ML, 1ML SQ SCH ×2 (17:18→23:42)
[2018-02-18] MEDS: INSULIN LISPRO 100 UNITS/ML, PEN SQ-INSULIN SCH ×2 (18:03→20:47)
[2018-02-18] MEDS ORDERED: DIPHENHYDRAMINE 25 MG CAPSULE PO PRN (20:30)
[2018-02-18] MEDS: ATORVASTATIN 20 MG TABLET PO SCH (20:46)
[2018-02-18] MEDS: CARVEDILOL 25 MG TABLET PO SCH (20:46)
[2018-02-18 20:50] VITALS: BP 103/63
[2018-02-19 03:29] VITALS: BP 110/74
[2018-02-19] MEDS: AMPICILLIN/SULBACTAM 3 GM in SODIUM CHLORIDE 0.9% 100 ML IV SCH ×4 (04:07→22:05)
[2018-02-19 05:44] LABS: ALANINE AMINOTRANSFERASE 13 U/L (12-78); ALBUMIN 2.5 g/dL (3.4-5.0); ANION GAP 6 mmol/L (5-15); BASOPHILS # (AUTO) 0.01 x10^3/uL (0-0.1); BASOPHILS % (AUTO) 0 % (0-1); CALCIUM 7.6 mg/dL (8.5-10.1); CHLORIDE 109 mmol/L (98-107); CHOLESTEROL, TOTAL 58 mg/dL (140-239); CREATININE 1.26 mg/dL (0.7-1.3); EOSINOPHILS # (AUTO) 0.11 x10^3/uL (0-0.4); EOSINOPHILS % (AUTO) 2 % (1-7); LYMPHOCYTES # (AUTO) 0.44 x10^3/uL (1-3.4); LYMPHOCYTES % (AUTO) 9 % (22-44); MD NO; MEAN CORPUSCULAR HEMOGLOBIN 32.7 pg (27.5-34.5); MEAN CORPUSCULAR HGB CONC 33.8 g/dL (33.2-36.2); MEAN CORPUSCULAR VOLUME 96.8 fL (81-97); MEAN PLATELET VOLUME 9.1 fL (7.4-10.4); MONOCYTES # (AUTO) 0.56 x10^3/uL (0.2-0.8); MONOCYTES % (AUTO) 12 % (2-9); NEUTROPHILS # (AUTO) 3.72 x10^3/uL (1.8-6.8); NEUTROPHILS % (AUTO) 77 % (42-75); PLATELET COUNT 139 x10^3/uL (130-400); RED BLOOD COUNT 3.56 x10^6/uL (4.38-5.82); RED CELL DISTRIBUTION WIDTH 13.6 % (9.4-14.8); TRIGLYCERIDES 128 mg/dL (50-200); VLDL CHOLESTEROL 26 mg/dL (0-25)
[2018-02-19 05:47] LABS: ALKALINE PHOSPHATASE 43 U/L (45-117); BILIRUBIN,TOTAL 2.3 mg/dL (0.2-1.0); CHOL/HDL RATIO 3.6; HDL CHOL % 28 % (26-37); HDL CHOLESTEROL (DIRECT) 16 mg/dL (40-60); LDL CHOLESTEROL,CALCULATED 16 mg/dL (54-169); TOTAL PROTEIN 5.7 g/dL (6.4-8.2); VANCOMYCIN,RANDOM 4.8 mcg/mL
[2018-02-19] MEDS: SODIUM CHLORIDE 0.9% 1,000 ML IV SCH ×2 (06:23→22:05)
[2018-02-19 07:14] VITALS: BP 106/67
[2018-02-19] MEDS: INSULIN LISPRO 100 UNITS/ML, PEN SQ-INSULIN SCH ×4 (07:21→20:56)
[2018-02-19] MEDS: CARVEDILOL 25 MG TABLET PO SCH ×2 (08:23→20:52)
[2018-02-19] MEDS: HEPARIN 5,000 UNITS/ML, 1ML SQ SCH ×2 (08:23→16:16)
[2018-02-19] MEDS: LISINOPRIL 20 MG TABLET PO SCH (08:24)
[2018-02-19] MEDS ORDERED: LISINOPRIL 20 MG TABLET PO SCH (09:00)
[2018-02-19] MEDS ORDERED: VANCOMYCIN 1,900 MG in SODIUM CHLORIDE 0.9% 250 ML IV SCH (12:00)
[2018-02-19 13:25] VITALS: BP 106/56
[2018-02-19 13:45] VITALS: BP 100/63
[2018-02-19 20:16] VITALS: BP 102/62
[2018-02-19] MEDS: ATORVASTATIN 20 MG TABLET PO SCH (20:52)
[2018-02-19] MEDS: TAMSULOSIN 0.4 MG CAP.ER.24H PO SCH (20:54)
[2018-02-19] MEDS: AMLODIPINE 5 MG TABLET PO SCH (20:56)
[2018-02-20] MEDS: HEPARIN 5,000 UNITS/ML, 1ML SQ SCH ×2 (00:38→07:47)
[2018-02-20 02:19] VITALS: BP 113/78
[2018-02-20] MEDS: AMPICILLIN/SULBACTAM 3 GM in SODIUM CHLORIDE 0.9% 100 ML IV SCH ×2 (03:58→10:31)
[2018-02-20 05:00] LABS: BASOPHILS # (AUTO) 0.01 x10^3/uL (0-0.1); BASOPHILS % (AUTO) 0 % (0-1); EOSINOPHILS # (AUTO) 0.18 x10^3/uL (0-0.4); EOSINOPHILS % (AUTO) 4 % (1-7); LYMPHOCYTES # (AUTO) 0.59 x10^3/uL (1-3.4); LYMPHOCYTES % (AUTO) 12 % (22-44); MD NO; MEAN CORPUSCULAR HEMOGLOBIN 32.6 pg (27.5-34.5); MEAN CORPUSCULAR HGB CONC 33.7 g/dL (33.2-36.2); MEAN CORPUSCULAR VOLUME 96.9 fL (81-97); MEAN PLATELET VOLUME 9.2 fL (7.4-10.4); MONOCYTES % (AUTO) 10 % (2-9); NEUTROPHILS # (AUTO) 3.57 x10^3/uL (1.8-6.8); NEUTROPHILS % (AUTO) 74 % (42-75); PLATELET COUNT 157 x10^3/uL (130-400); RED BLOOD COUNT 3.64 x10^6/uL (4.38-5.82); RED CELL DISTRIBUTION WIDTH 13.6 % (9.4-14.8)
[2018-02-20 05:06] LABS: ALANINE AMINOTRANSFERASE 13 U/L (12-78); ALBUMIN 2.7 g/dL (3.4-5.0); ANION GAP 7 mmol/L (5-15); CALCIUM 7.9 mg/dL (8.5-10.1); CHLORIDE 112 mmol/L (98-107); CREATININE 0.85 mg/dL (0.7-1.3)
[2018-02-20 05:08] LABS: ALKALINE PHOSPHATASE 48 U/L (45-117); BILIRUBIN,TOTAL 2.4 mg/dL (0.2-1.0)
[2018-02-20] MEDS: INSULIN LISPRO 100 UNITS/ML, PEN SQ-INSULIN SCH ×2 (07:47→11:15)
[2018-02-20] MEDS: AMLODIPINE 5 MG TABLET PO SCH (07:48)
[2018-02-20] MEDS: CARVEDILOL 25 MG TABLET PO SCH (07:48)
[2018-02-20 07:51] VITALS: BP 113/68
[2018-02-20] MEDS ORDERED: HYDROmorphone 2 MG/ML, 1ML ONE (08:11)
[2018-02-20] MEDS ORDERED: HYDROmorphone 1 MG/ML, 1ML IM ONE (08:30)
[2018-02-20] MEDS: TAMSULOSIN 0.4 MG CAP.ER.24H PO SCH (09:00)
[2018-02-20] MEDS: LISINOPRIL 20 MG TABLET PO SCH (09:00)
[2018-02-20 09:13] LABS: ANION GAP 8 mmol/L (5-15); CALCIUM 7.8 mg/dL (8.5-10.1); CHLORIDE 111 mmol/L (98-107); CREATININE 0.81 mg/dL (0.7-1.3)
[2018-02-20] MEDS ORDERED: AMOX1TAB64 PO (11:38)
[2018-02-20 13:32] VITALS: BP 102/63
[2018-02-20] MEDS ORDERED: AMOXICILLIN/CLAV 875-125MG TABLET PO SCH (21:00)
== END 2018-02-20 14:13 | disposition home or self-care (01) | DRG 579 ==
LOC: ED 08:18 → EDIP 08:47 → 4NOR 08:52
PROVIDERS: ADMIT Family Medicine; ATTEND Family Medicine
PROC: 0J9B0ZZ Drainage of Perineum Subcutaneous Tissue and Fascia, Open Approach (ICD-10-PCS; principal; 2018-02-18 10:00)
DX: L02.215 Cutaneous abscess of perineum (principal); N17.0 Acute kidney failure with tubular necrosis; N13.2 Hydronephrosis with renal and ureteral calculous obstruction; E44.0 Moderate protein-calorie malnutrition; K61.1 Rectal abscess; Z68.32 Body mass index [BMI] 32.0-32.9, adult; R53.81 Other malaise; E11.9 Type 2 diabetes mellitus without complications; E78.5 Hyperlipidemia, unspecified; E87.6 Hypokalemia; I10 Essential (primary) hypertension; I45.10 Unspecified right bundle-branch block; B95.61 Methicillin susceptible Staphylococcus aureus infection as the cause of diseases classified elsewhere; K81.1 Chronic cholecystitis; I34.0 Nonrheumatic mitral (valve) insufficiency; I48.91 Unspecified atrial fibrillation; K76.0 Fatty (change of) liver, not elsewhere classified; N40.0 Benign prostatic hyperplasia without lower urinary tract symptoms; Z79.84 Long term (current) use of oral hypoglycemic drugs; Z82.3 Family history of stroke; Z82.49 Family history of ischemic heart disease and other diseases of the circulatory system; Z83.3 Family history of diabetes mellitus; Z87.440 Personal history of urinary (tract) infections; Z95.3 Presence of xenogenic heart valve
CPT/HCPCS: 36415; 71045; 72193; 76700; 80048; 80053; 80061; 80202; 81001; 82962; 83036; 84436; 84443; 84484; 85025; 85610; 87070; 87075; 87077; 87086; 87186; 87205; 93005; J0295; J1170; J1644; J2250; J2405; J2704; J3010; J3370; Q9967; J0330; J1815; J7030; J7050; Q0163

== ENCOUNTER 2019-05-14 16:59 | Emergency (ER) | payer MEDICARE ==
[~2019-05-14] VITALS: Ht 175.3 cm; Wt 84.6 kg
[~2019-05-14 16:59] MED LIST changes: +AMIO200T42 PO; +AMLO-302 PO; +AMLO10TA4 PO; +AMOX1TAB64 PO; +APIX2.5T PO; +APIX5TAB PO; -ASPI-621 PO; +ASPI81TA45 PO; +ATOR20TA37 PO; +CARV25TA12 PO; +DILT120C11 PO; -GLIP-164 PO; +GLIP10TA24 PO; -HYDR-3307 PO; +HYDR-36 PO; +MEGE400O2 PO; +METF500T27 PO; +MULT1TAB81 PO; +ROSU5TAB PO; +SPIR25TA5 PO; +TAMS-11 PO; +amiodarone PO
--- NOTE | 2019-05-14 19:02 | NUR ---
PATIENT PRESENTS TO ED TODAY FOR JAUNDICE AND LOW BP PER HOME HEALTH NURSE, PATIENT HAD BOWEL SX 2WKS AGO, PER SON SLIGHTLY CONFUSED SINCE SX. SKIN PALE, WARM, DRY. CARDIAC MONIOR ON PATIENT, FAMILY AT BEDSIDE, AWAITING MD ORDERS, CALL LIGHT WITHIN REACH.
[2019-05-14] MEDS ORDERED: SODIUM CHLORIDE FLUSH 10ML SYR IVF ONE (19:30)
[2019-05-14] MEDS ORDERED: SODIUM CHLORIDE 0.9% 1,000ML IVBOLUS ONE (19:30)
[2019-05-14 19:58] LABS: BASOPHILS # (AUTO) 0.02 x10^3/uL (0-0.1); BASOPHILS % (AUTO) 0 % (0-1); EOSINOPHILS # (AUTO) 0.12 x10^3/uL (0-0.4); EOSINOPHILS % (AUTO) 2 % (1-7); LYMPHOCYTES # (AUTO) 0.85 x10^3/uL (1-3.4); LYMPHOCYTES % (AUTO) 14 % (22-44); MD NO; MEAN CORPUSCULAR HEMOGLOBIN 32.6 pg (27.5-34.5); MEAN CORPUSCULAR HGB CONC 31.7 g/dL (33.2-36.2); MEAN CORPUSCULAR VOLUME 102.7 fL (81-97); MEAN PLATELET VOLUME 8.7 fL (7.4-10.4); MONOCYTES # (AUTO) 0.46 x10^3/uL (0.2-0.8); MONOCYTES % (AUTO) 7 % (2-9); NEUTROPHILS # (AUTO) 4.81 x10^3/uL (1.8-6.8); NEUTROPHILS % (AUTO) 77 % (42-75); PLATELET COUNT 231 x10^3/uL (130-400); RED BLOOD COUNT 3.51 x10^6/uL (4.38-5.82)
[2019-05-14 20:07] LABS: ALANINE AMINOTRANSFERASE 29 U/L (12-78); ALBUMIN 3.2 g/dL (3.4-5.0); ANION GAP 4 mmol/L (5-15); CALCIUM 9.1 mg/dL (8.5-10.1); CHLORIDE 111 mmol/L (98-107)
[2019-05-14 20:08] LABS: INTERNATIONAL NORMALIZED RATIO 1.12 (0.93-1.1); PROTHROMBIN TIME 11.7 Seconds (9.6-11.5)
[2019-05-14 20:09] LABS: ALKALINE PHOSPHATASE 69 U/L (45-117); BILIRUBIN,TOTAL 0.9 mg/dL (0.2-1.0); CREATININE 1.22 mg/dL (0.7-1.3); TOTAL PROTEIN 7.3 g/dL (6.4-8.2)
--- NOTE | 2019-05-14 20:11 | NUR ---
PT MEDICATED PER EMAR.
[2019-05-14 20:12] VITALS: BP 119/67
--- NOTE | 2019-05-14 20:16 | NUR ---
PT UNABLE TO PROVIDE UA AT THIS TIME.
--- NOTE | 2019-05-14 21:22 | NUR ---
STRAIGHT CATH PERFORMED AND UA WALKED TO LAB. VSS.
--- NOTE | 2019-05-14 21:32 | NUR ---
PT RESTING IN BED COMFORTABELY.
[2019-05-14 21:39] LABS: CULTURE INDICATED? YES; MICROSCOPIC INDICATED
--- NOTE | 2019-05-14 22:36 | NUR ---
CHART UP FOR RECHECK
--- NOTE | 2019-05-14 23:07 | NUR ---
Patient/Caregiver given discharge instructions and they have confirmed that they understand the instructions. Patient ambulatory with steady gait.
[2019-05-20] MEDS ORDERED: IRON1TAB60 PO (13:57)
== END 2019-05-14 23:09 | disposition home or self-care (01) ==
LOC: ED 23:00
DX: I95.9 Hypotension, unspecified (principal); I10 Essential (primary) hypertension; E11.9 Type 2 diabetes mellitus without complications; R53.1 Weakness
CPT/HCPCS: 36415; 80053; 81001; 85025; 85610; 85730; 87086; 93005; 96360; 99284; J7030

== ENCOUNTER → 2019-05-15 | Outpatient (CLI) | payer MEDICARE ==
[~2019-05-15] MED LIST changes: +IRON1TAB60 PO
== END | disposition home or self-care (01) ==
LOC: WOUND 08:17
PROVIDERS: ATTEND Internal Medicine
DX: T81.31XA Disruption of external operation (surgical) wound, not elsewhere classified, initial encounter (principal); E44.0 Moderate protein-calorie malnutrition; E78.5 Hyperlipidemia, unspecified; I48.91 Unspecified atrial fibrillation; F03.90 Unspecified dementia, unspecified severity, without behavioral disturbance, psychotic disturbance, mood disturbance, and anxiety; E46 Unspecified protein-calorie malnutrition; E11.65 Type 2 diabetes mellitus with hyperglycemia; I11.0 Hypertensive heart disease with heart failure; I50.32 Chronic diastolic (congestive) heart failure; Z95.2 Presence of prosthetic heart valve; Z87.891 Personal history of nicotine dependence; Z79.01 Long term (current) use of anticoagulants; Z68.27 Body mass index [BMI] 27.0-27.9, adult; Y92.89 Other specified places as the place of occurrence of the external cause; Y83.8 Other surgical procedures as the cause of abnormal reaction of the patient, or of later complication, without mention of misadventure at the time of the procedure
CPT/HCPCS: 11042; 97605; G0463